=== PATIENT | female | born 1930 | race Caucasian/White ===

== ENCOUNTER 2018-12-03 09:15 | Inpatient (IN) | payer MEDICARE ==
[~2018-12-03] VITALS: Ht 157.5 cm; Wt 48.1 kg
[2018-12-03 10:03] LABS: BASOPHILS ABSOLUTE AUTO 0.04 K/mm3 (0.00-0.23); BASOPHILS PERCENT AUTO 0 % (0-2); EOSINOPHILS ABSOLUTE AUTO 0.04 K/mm3 (0.00-0.68); EOSINOPHILS PERCENT AUTO 0 % (0-6); Hematocrit 37.2 % (33.0-51.0); Hemoglobin 11.8 g/dL (11.5-16.0); IMMATURE GRAN PERCENT AUTO 1 % (0-1); LYMPHOCYTES ABSOLUTE AUTO 0.93 K/mm3 (0.84-5.20); LYMPHOCYTES PERCENT AUTO 8 % (21-46); MONOCYTES ABSOLUTE AUTO 1.12 K/mm3 (0.16-1.47); MONOCYTES PERCENT AUTO 9 % (4-13); Mean Corpuscular HGB Conc 31.7 g/dL (31.5-36.5); Mean Corpuscular Volume 91 fL (80-100); Mean Platelet Volume 10.4 fL (9.1-12.4); NEUTROPHILS ABSOLUTE AUTO 10.21 K/mm3 (1.96-9.15); NEUTROPHILS PERCENT AUTO 82 % (41-73); Platelet Count 281 K/mm3 (150-400); RDW Coefficient Variation 13.8 % (11.7-14.2); RDW Standard Deviation 47.1 fL (35.1-46.3); Red Blood Cell Count 4.07 M/mm3 (3.80-5.20); White Blood Cell Count 12.44 K/mm3 (4.00-11.30)
[2018-12-03 10:21] LABS: Alanine Aminotransfer (ALT/SGP 15 U/L (12-78); Albumin, Blood 2.8 g/dL (3.4-5.0); Albumin/Globulin Ratio 0.6 (0.8-1.8); Alk Phos 84 U/L (50-136); Anion Gap 8 mmol/L (6-16); Aspartate Aminotrans (AST/SGOT 23 U/L (12-37); Bilirubin, Total 0.6 mg/dL (0.1-1.0); Blood Urea Nitrogen 28 mg/dL (8-24); Bun/Creatinine Ratio 31.2 (12.0-20.0); CO2, Blood 27 mmol/L (21-32); Calcium, Blood 8.5 mg/dL (8.5-10.1); Chloride, Blood 105 mmol/L (98-108); Globulin, Blood 4.9 g/dL (2.2-4.0); Glomerular Filtration Rate >60 (60-); Glucose, Blood 151 mg/dL (70-99); Potassium, Blood 3.1 mmol/L (3.5-5.5); Sodium, Blood 140 mmol/L (136-145); Total Protein, Blood 7.7 g/dL (6.4-8.2); Troponin I <0.015 ng/mL (0.000-0.040)
[2018-12-03 10:29] LABS: Prothrombin Time Results 40.8 Sec (9.7-11.5)
[2018-12-03 10:34] LABS: International Normalized Ratio 4.4
[2018-12-03] MEDS ORDERED: HYDRA50 PO (15:31)
[2018-12-03] MEDS ORDERED: WARF2.5 PO ×2 (15:32→19:25)
[2018-12-03] MEDS ORDERED: Isosorbide Mono30 MG PO (15:50)
[2018-12-03] MEDS ORDERED: Zantac150 MG PO (15:50)
[2018-12-03] MEDS ORDERED: METO25 PO (19:18)
--- NOTE | 2018-12-03 19:33 | NUR ---
RECEIVED TO PCU 13 AT 1845 FROM THE ER. SHE IS PLEASANT AND COOPERATIVE. SHE DENIES ANY SKIN RASHES OR SORES. MADE COMFORTABLE. WOOL SHEARER APPLYING TELE MONITOR AND GETTING A SET OF VS. PATIENT DENIES ANY CP. ORIENTED TO ROOM. CALL LIGHT PUT INTO REACH.
--- NOTE | 2018-12-03 21:55 | NUR ---
AFIB W/ RVR UPDATE MONITOR SHOWS AFIB, HR 130-160. CALL TO MD DALTON W/ ORDERS FOR PRN METOPROLOL, SEE EMAR.
--- NOTE | 2018-12-04 00:06 | NUR ---
HR UPDATE PO METOPROLOL UNSUCCESSFUL IN REDUCING PT HR. CALL TO MD ROSE W/ NEW ORDERS FOR IV METOPROLOL, SEE EMAR.
--- NOTE | 2018-12-04 03:08 | NUR ---
CALL TO MD ROSE FOR PT HEART RATE CONTINUING TO TOUCH 150, 160'S AFTER IV METOPROLOL PUSH PER EMAR. NEW ORDERS GIVEN FOR CARDIZEM BOLUS AND CARDIZEM GTT, SEE EMAR.
[2018-12-04 05:02] LABS: BASOPHILS ABSOLUTE AUTO 0.03 K/mm3 (0.00-0.23); BASOPHILS PERCENT AUTO 0 % (0-2); EOSINOPHILS ABSOLUTE AUTO 0.04 K/mm3 (0.00-0.68); EOSINOPHILS PERCENT AUTO 0 % (0-6); Hematocrit 33.3 % (33.0-51.0); Hemoglobin 10.7 g/dL (11.5-16.0); IMMATURE GRAN ABSOLUTE AUTO 0.07 K/mm3 (0.00-0.10); IMMATURE GRAN PERCENT AUTO 1 % (0-1); LYMPHOCYTES ABSOLUTE AUTO 0.94 K/mm3 (0.84-5.20); LYMPHOCYTES PERCENT AUTO 9 % (21-46); MONOCYTES ABSOLUTE AUTO 1.07 K/mm3 (0.16-1.47); MONOCYTES PERCENT AUTO 10 % (4-13); Mean Corpuscular HGB 29.1 pg (26.0-34.0); Mean Corpuscular HGB Conc 32.1 g/dL (31.5-36.5); Mean Corpuscular Volume 91 fL (80-100); Mean Platelet Volume 10.4 fL (9.1-12.4); NEUTROPHILS ABSOLUTE AUTO 8.26 K/mm3 (1.96-9.15); NEUTROPHILS PERCENT AUTO 79 % (41-73); Platelet Count 277 K/mm3 (150-400); RDW Standard Deviation 46.8 fL (35.1-46.3); Red Blood Cell Count 3.68 M/mm3 (3.80-5.20); White Blood Cell Count 10.41 K/mm3 (4.00-11.30)
[2018-12-04 05:16] LABS: International Normalized Ratio 3.35; Prothrombin Time Results 31.8 Sec (9.7-11.5)
--- NOTE | 2018-12-04 05:20 | NUR ---
SHIFT SUMMARY PT A&O X4, CALM AND COOPERATIVE. MONITOR SHOWING AFIB W/ RVR THIS SHIFT W/ OUT SUCCESSFUL REDUCTION IN HR AFTER PO METOPROLOL AND IV METOPROLOL PER EMAR. PT NEXT GIVEN CARDIZEM BOLUS FOLLOWED BY CARDIZEM GTT W/ ORDERS FOR TITRATION. CARDIZEM GTT INFUSING @ 5 ML/HR W/ HR REDUCED TO 90-130. SPO2 > 92% ON RA. VSS. PT IN BED W/ CALL LIGHT IN REACH. SBA TO BATHROOM. WILL CONTINUE TO MONITOR AND PROVIDE CARE UNTIL REPORT OFF TO DAY SHIFT RN.
[2018-12-04 05:25] LABS: Anion Gap 9 mmol/L (6-16); Blood Urea Nitrogen 24 mg/dL (8-24); Bun/Creatinine Ratio 32.8 (12.0-20.0); CO2, Blood 22 mmol/L (21-32); Calcium, Blood 8.1 mg/dL (8.5-10.1); Chloride, Blood 109 mmol/L (98-108); Creatinine, Blood 0.73 mg/dL (0.40-1.00); Glomerular Filtration Rate >60 (60-); Glucose, Blood 112 mg/dL (70-99); Potassium, Blood 3.7 mmol/L (3.5-5.5); Sodium, Blood 140 mmol/L (136-145)
--- NOTE | 2018-12-04 07:46 | NUR ---
AM ASSESSMENT: Pt resting in bed. Up to bathroom with one assist and then to chair. HR still afib RVR at a rate of 100-130 at this time. Increased gtt rate to 10mg/ml. LS clear but slightly dim in bases. BT positive. Pulses palp. Pt denies pain, CP or SOB at this time. States that she thinks she is feeling much better. Pt oriented to self and state but confused to date, year, time and hosptial. Pt did just move from [place]. Pt uses call light appropriatly. Will continue to monitor.
--- NOTE | 2018-12-04 15:30 | NUR ---
UPDATE: Pt sitting up in room. Denies needs at this time. VSS. IV cardizem running at 10mg/hr. PO metoprolol given per orders. Will discontinue IV cardizem in about 1/2 hour. Pt denies other needs. Call light in reach.
--- NOTE | 2018-12-04 17:53 | NUR ---
SHift summary: Pt sitting up in chair. LS clear. BT positive. HR still afib rate of 80-115 range. IV cardizem was turned off at approximatly 1700. Pt up with SBA multiple times in room with RN. BP has been stable throughout the shift. Pt states that she feels so much better and is hoping to be discharged tomorrow. SS consult has been placed for discharge planning. Pt sitting up in chair at this time. Pt. shawna Goodson in room visiting, other visitors also in the room. At one point door was closed. Staff went and opened the door. Pt. shawna Goodson asked if it could be closed again and informed her that it needed to stay open. Will report to night RN.
--- NOTE | 2018-12-04 22:10 | NUR ---
2210: PT'S DAUGHTER MARJORIE ARRIVES FOR VISIT AND IS AGREEABLE TO ROOM DOOR NEEDING TO REMAIN OPEN, AND THAT DISRUPTIONS WILL NOT BE TOLERATED. PT IS AGREEABLE TO VISIT.
--- NOTE | 2018-12-05 02:31 | NUR ---
0231: PT'S DAUGHTER MARJORIE LEAVES FACILITY. SHE ASSISTED PT CHANGING FONT TO XL ON PT'S CELL PHONE. PT VERBALIZED AGREEMENT TO LET DAUGHTER LOOK THROUGH HER PURSE FOR HER "FOOD STAMP CARD."
--- NOTE | 2018-12-05 07:52 | NUR ---
AM ASSESSMENT; Pt resting in room. Oriented to self. Knows that she is in [place] but does not know what town or facility. Oriented to date, but not year. Very cooperative. LS clear. HR irregular and tachy. TEle shows afib with rate in the 110-130's. BT positive. Pulses palp. Pt denies pain, CP, or SOB. States that she is feeling really good and wants to go home. Pt was told that she will likely discharge today, but for some reason pt thinks that she will not be discharged until Monday. Will continue to re-orient pt to room and location. Stable at this time. Up to chair with one assist for breakfast. Call light in reach.
--- NOTE | 2018-12-05 08:37 | NUR ---
Pt gave me permission to care for her on 12/05/2018
[2018-12-05] MEDS ORDERED: METO25 PO (11:23)
--- NOTE | 2018-12-05 14:10 | NUR ---
DISCHARGE: Pt and granddaughter were given verbal and written discharge instructions. Verbalized understanding, denies questions. IV was discontinued by Student nurse Jael, IV was intact. RX were sent to [facility], Follow up appointment was scheduled. Grand daughter and pt. denied questions. Stable at time of discharge. Left via w/c.
== END 2018-12-05 14:05 | disposition home or self-care (01) | DRG 310 ==
LOC: ER 09:15 → ERHOLD 11:43 → PCU 18:58
PROVIDERS: Emergency Medicine; ADMIT Hospitalist
DX: I48.91 Unspecified atrial fibrillation (principal); K21.9 Gastro-esophageal reflux disease without esophagitis; D64.9 Anemia, unspecified; I10 Essential (primary) hypertension; E87.6 Hypokalemia; R79.1 Abnormal coagulation profile; Z79.01 Long term (current) use of anticoagulants; J44.9 Chronic obstructive pulmonary disease, unspecified
CPT/HCPCS: 36415; 71045; 80048; 80053; 83605; 84145; 84484; 85025; 85610; 93005; 93010; 96365; 96367; 96375; 99285-25; J0456; J0696; J7030; J7050

== ENCOUNTER 2019-01-08 15:33 | Inpatient (IN) | payer MEDICARE, OTHER ==
[~2019-01-08] VITALS: Ht 157.5 cm; Wt 44.1 kg
[~2019-01-08 15:33] MED LIST: HYDRA50 PO; Isosorbide Mono30 MG PO; METO25 PO; WARF2.5 PO; Zantac150 MG PO
[2019-01-08 16:33] LABS: BASOPHILS ABSOLUTE AUTO 0.03 K/mm3 (0.00-0.23); BASOPHILS PERCENT AUTO 1 % (0-2); EOSINOPHILS ABSOLUTE AUTO 0.07 K/mm3 (0.00-0.68); EOSINOPHILS PERCENT AUTO 1 % (0-6); Hematocrit 37.1 % (33.0-51.0); Hemoglobin 11.3 g/dL (11.5-16.0); IMMATURE GRAN ABSOLUTE AUTO 0.02 K/mm3 (0.00-0.10); IMMATURE GRAN PERCENT AUTO 0 % (0-1); LYMPHOCYTES ABSOLUTE AUTO 0.88 K/mm3 (0.84-5.20); LYMPHOCYTES PERCENT AUTO 14 % (21-46); MONOCYTES PERCENT AUTO 11 % (4-13); Mean Corpuscular HGB 26.6 pg (26.0-34.0); Mean Corpuscular HGB Conc 30.5 g/dL (31.5-36.5); Mean Corpuscular Volume 87 fL (80-100); NEUTROPHILS ABSOLUTE AUTO 4.51 K/mm3 (1.96-9.15); NEUTROPHILS PERCENT AUTO 73 % (41-73); Platelet Count 230 K/mm3 (150-400); RDW Coefficient Variation 15.9 % (11.7-14.2); RDW Standard Deviation 50.4 fL (35.1-46.3); Red Blood Cell Count 4.25 M/mm3 (3.80-5.20); White Blood Cell Count 6.21 K/mm3 (4.00-11.30)
[2019-01-08 17:21] LABS: Alanine Aminotransfer (ALT/SGP 42 U/L (12-78); Albumin, Blood 2.7 g/dL (3.4-5.0); Albumin/Globulin Ratio 0.6 (0.8-1.8); Alk Phos 107 U/L (50-136); Anion Gap 6 mmol/L (6-16); Aspartate Aminotrans (AST/SGOT 43 U/L (12-37); Bilirubin, Total 0.9 mg/dL (0.1-1.0); Blood Urea Nitrogen 39 mg/dL (8-24); CO2, Blood 25 mmol/L (21-32); Calcium, Blood 8.4 mg/dL (8.5-10.1); Chloride, Blood 110 mmol/L (98-108); Globulin, Blood 4.2 g/dL (2.2-4.0); Glomerular Filtration Rate 56 (60-); Glucose, Blood 99 mg/dL (70-99); Potassium, Blood 3.4 mmol/L (3.5-5.5); Sodium, Blood 141 mmol/L (136-145); Total Protein, Blood 6.9 g/dL (6.4-8.2); Troponin I <0.015 ng/mL (0.000-0.040)
[2019-01-08] MEDS ORDERED: CENTRUM SILVER1 EAC3 PO (19:06)
[2019-01-08] MEDS ORDERED: VITAMIN D3400 UNIT PO (19:06)
[2019-01-09 04:39] LABS: Anion Gap 7 mmol/L (6-16); Blood Urea Nitrogen 36 mg/dL (8-24); Bun/Creatinine Ratio 41.1 (12.0-20.0); CO2, Blood 24 mmol/L (21-32); Calcium, Blood 7.9 mg/dL (8.5-10.1); Chloride, Blood 110 mmol/L (98-108); Creatinine, Blood 0.88 mg/dL (0.40-1.00); Glomerular Filtration Rate >60 (60-); Glucose, Blood 106 mg/dL (70-99); Potassium, Blood 3.9 mmol/L (3.5-5.5); Sodium, Blood 141 mmol/L (136-145)
[2019-01-09 04:45] LABS: Prothrombin Time Results 38.3 Sec (9.7-11.5)
--- NOTE | 2019-01-09 04:52 | NUR ---
PCU NOC SHIFT SUMMARY PATIENT ALERT AND ORIENTED X4. SBA TO BATHROOM - AMBULATES WELL. PATIENT REMAINS ON ROOM AIR - SOB W/ EXCERTION NOTED AND LUNG SOUNDS COARSE T/O. PATIENT REMAINS IN AFIB IN THE 115'S T/O SHIFT. PATIENT DENIES ANY PAIN OR NEEDS AT THIS TIME. NO ACUTE CHANGES T/O SHIFT AND VSS BEYOND AFIB W/ RVR. WILL CONTINUE TO MONITOR AND GIVE REPORT TO DAYSHIFT RN.
[2019-01-09 05:39] LABS: International Normalized Ratio 4.11
--- NOTE | 2019-01-09 07:39 | NUR ---
NURSING PCU DAYSHIFT: Asssumed care of pt at approx 0700. A/O, very pleasant, cooperative w/care, mildly [place]. Denies any pain/discomfort at rest. Skin is fragile w/no breakdown noted. Ambulates w/one staff assist. Tele in place, afib w/HR 105-115, no c/o CP/pressure, BP stable, 2+ BLE edema. L/S fairly cta t/o w/fine cracles in RLL, denies dyspnea, O2 sat stable on RA, no noted cough. Abd SNT, BT+, voiding w/o difficulty per pt. PIV x1, s/l. No s/s of acute distress at this time. Pt denies any current needs or questions regarding plan of care. Call light in reach, bed alarm set for safety purposes. Awaiting rounding from PMD, cont to monitor for any changes.
--- NOTE | 2019-01-09 18:09 | NUR ---
NURSING PCU DAYSHIFT SUMMARY: No significant changes noted t/o the shift. VS remained stable, respiratory and cardiac status unchanged. Pt continues to diurese well w/meds as ordered. Family at bedside, update provided and plan of care discussed. Pt has been independent in room w/o difficulty. Ambulated maki w/no c/o dyspnea which is improvement from previous day per pt. HR remains 110-120's, increases to 120-130's w/exertion. Pt denies any questions/needs at this time, call light in reach, cont to monitor until rpt is given to NOC RN.
--- NOTE | 2019-01-09 22:35 | NUR ---
PCU NIGHTSHIFT ASSUMED CARE OF PT APPROX. 1900. PT A&O X4. ASSESSMENT COMPLETED, VITAL SIGNS STABLE. PT HEART RHYTHM REMAINS A. FIB AT THIS TIME AVERAGING 110'S. PT REPORTS HAVING A GOOD DAY AND FEELING BETTER THAN SHE PREVIOUSLY DID. PT SLEEPY THIS EVENING BUT WAS ABLE TO WAKE UP AND ANSWER ALLL QUESTIONS AND TAKE EVENING MEDICAITONS. BED IN LOW POSITON, CALL LIGHT IN REACH AND PT DENIES ANY NEEDS AT THIS TIME.
[2019-01-10 04:24] LABS: BASOPHILS ABSOLUTE AUTO 0.03 K/mm3 (0.00-0.23); BASOPHILS PERCENT AUTO 1 % (0-2); EOSINOPHILS ABSOLUTE AUTO 0.12 K/mm3 (0.00-0.68); EOSINOPHILS PERCENT AUTO 2 % (0-6); Hematocrit 37.6 % (33.0-51.0); Hemoglobin 11.6 g/dL (11.5-16.0); IMMATURE GRAN ABSOLUTE AUTO 0.02 K/mm3 (0.00-0.10); IMMATURE GRAN PERCENT AUTO 0 % (0-1); LYMPHOCYTES ABSOLUTE AUTO 1.01 K/mm3 (0.84-5.20); LYMPHOCYTES PERCENT AUTO 20 % (21-46); MONOCYTES ABSOLUTE AUTO 0.63 K/mm3 (0.16-1.47); MONOCYTES PERCENT AUTO 12 % (4-13); Mean Corpuscular HGB 26.2 pg (26.0-34.0); Mean Corpuscular HGB Conc 30.9 g/dL (31.5-36.5); Mean Corpuscular Volume 85 fL (80-100); Mean Platelet Volume 11.4 fL (9.1-12.4); NEUTROPHILS PERCENT AUTO 65 % (41-73); Platelet Count 213 K/mm3 (150-400); RDW Coefficient Variation 15.7 % (11.7-14.2); Red Blood Cell Count 4.43 M/mm3 (3.80-5.20); White Blood Cell Count 5.11 K/mm3 (4.00-11.30)
[2019-01-10 04:40] LABS: International Normalized Ratio 3.33; Prothrombin Time Results 31.6 Sec (9.7-11.5)
[2019-01-10 04:47] LABS: Alanine Aminotransfer (ALT/SGP 34 U/L (12-78); Albumin, Blood 2.8 g/dL (3.4-5.0); Albumin/Globulin Ratio 0.7 (0.8-1.8); Alk Phos 91 U/L (50-136); Anion Gap 7 mmol/L (6-16); Aspartate Aminotrans (AST/SGOT 24 U/L (12-37); Bilirubin, Total 1.1 mg/dL (0.1-1.0); Blood Urea Nitrogen 31 mg/dL (8-24); Bun/Creatinine Ratio 35.7 (12.0-20.0); CO2, Blood 28 mmol/L (21-32); Calcium, Blood 8.3 mg/dL (8.5-10.1); Chloride, Blood 106 mmol/L (98-108); Creatinine, Blood 0.87 mg/dL (0.40-1.00); Glomerular Filtration Rate >60 (60-); Glucose, Blood 85 mg/dL (70-99); Sodium, Blood 141 mmol/L (136-145); Total Protein, Blood 6.8 g/dL (6.4-8.2)
--- NOTE | 2019-01-10 05:03 | NUR ---
SHIFT SUMMARY PT PLEASANT, COOPERATIVE AND USES CALL LIGHT APPROPRIATELY. PT REMAINS A&OX4. ASSESSMENT FINDINGS REMAIN UNCHANGED. PT ABLE TO SLEEP FOR MOST OF SHIFT. ALTHOUGH WAS ABLE TO AMBUALTE TO BATHROOM NEEDED AND TOLERATED WELL. HEART RATE REMAINS A. FIB WITH HEART RATE AVERAGING 100'S-110'S. BED IN LOW POSITION, CALL LIGHT IN REACH AND PT DENIES ANY NEEDS AT THIS TIME. WILL CONTINUE TO MONITOR UNTIL HANDOFF TO DAYSHIFT RN.
--- NOTE | 2019-01-10 07:45 | NUR ---
NURSING PCU DAYSHIFT: Assumed care of pt at approx 0700. A/O, [place], pleasant, cooperative w/care. Denies any pain/discomfort at rest. Skin is fragile though intact w/no breakdown noted. Ambulates independently and w/o difficulty. Tele in place, afib w/PVC's, no c/o CP/pressure, SBP 130 prior to a.m. meds, trace-1+ BLE edema. L/S dim t/o, O2 sat stable on RA, denies dyspnea, no noted cough, respirations shallow. Abd SNT, BT+, voiding w/o difficulty. PIV x1, s/l. No s/s of acute distress at this time. Pt denies any current needs or questions regarding plan of care. Call light in reach and pt is able to use w/o difficulty. Awaiting rounding from PMD, cont to monitor for any changes.
--- NOTE | 2019-01-10 17:26 | NUR ---
NURSING PCU DAYSHIFT SUMMARY: No significant changes noted t/o the shift. VS have remained stable, cardiac and respiratory status unchanged. HR has improved and is averaging 80's this evening. Family at bedside intermittently t/o the day, update provided. PMD notified of family members request to discuss ECHO results, cell number provided to PMD by CN. No s/s of acute distress at this time. Call light remains in reach and pt is able to use w/o difficulty. Cont to monitor until rpt is given to NOC RN.
[2019-01-11 04:23] LABS: International Normalized Ratio 2.46
[2019-01-11 04:28] LABS: Anion Gap 7 mmol/L (6-16); Blood Urea Nitrogen 24 mg/dL (8-24); Bun/Creatinine Ratio 28.2 (12.0-20.0); CO2, Blood 31 mmol/L (21-32); Calcium, Blood 7.9 mg/dL (8.5-10.1); Chloride, Blood 102 mmol/L (98-108); Creatinine, Blood 0.85 mg/dL (0.40-1.00); Glomerular Filtration Rate >60 (60-); Glucose, Blood 82 mg/dL (70-99); Magnesium, Blood 2.2 mg/dL (1.6-2.4); Potassium, Blood 3.3 mmol/L (3.5-5.5); Sodium, Blood 140 mmol/L (136-145)
--- NOTE | 2019-01-11 04:48 | NUR ---
PCU NOC SHIFT SUMMARY PATIENT ALERT AND ORIENTED T/O SHIFT X4. NO ACUTE EVENTS NOTED. PATIENT SBA TO BATHROOM, SLIGHTLY UNEASY OF FEET. RESP E/U ON ROOM AIR, PATIENT TOLERATES AMBULATION WELL. PATIENT DENIES ANY PAIN OR SOB T/O SHIFT. PATIENT INCONTINENT X2 OF URINE THIS SHIFT. SHOWERED THIS AM WITH ASSIST. PATIENT REMAINS IN AFIB 90-110'S T/O SHIFT. VSS. WILL CONTINUE TO MONITOR AND GIVE REPORT TO FLAKO RN.
--- NOTE | 2019-01-11 12:27 | NUR ---
1230 SCHEDULED Apresoline was held for systolic blood pressure less than 110 mmHg at this time. Thept is sitting up on the side of the bed, eating lunch with her family surrounding her.
--- NOTE | 2019-01-11 14:29 | NUR ---
Gabriela has been alert, oriented, cooperative and without any complaints this morning. Denies any pain or difficulty breathing. Both she and her daughter state that the swelling in her legs has decreased significantly. At this time she does not have any pretibial edema, nor pedal edema, only some around her ankles.
--- NOTE | 2019-01-11 17:32 | NUR ---
Delightful, pleasant and cooperative soft-spoken lady who has been cooperative with care and also receptive to teaching about CHF, medications, and checking blood pressure and heart rate at home after discharge. She lives with her granddaughter. Gabriela has been up in hallway with physical therapy, and was encouraged to get up out of bed as much as tolerated, especially to take her meals in a chair. Telephone report given to Russ Kelly. Transfer of pt to room 339 this evening.
--- NOTE | 2019-01-11 18:12 | NUR ---
SUMMARY PT ARRIVED FROM PCU, ABLE TO STAND AND TRANSFER FROM THE WHEELCHAIR TO THE BED, PT IS ACCOMPANIED BY HER DAUGHTER, PT ORIENTED TO ROOM AND CALL SYSTEM, PLEASANT AND COOPERATIVE WITH CARE, WILL CONT TO MONITOR
--- NOTE | 2019-01-12 04:00 | NUR ---
SHIFT SUMMARY PT HAD NO ISSUES OR EVENTS NOTED. PT LOPRESSOR WAS HELD PER ORDERS DUE TO LOW BP. PT HAS SLEPT WELL T/O SHIFT. PT HAD NO COMPLAINTS. PT FAMILY STAYED THE NIGHT WITH PT. CALL LIGHT IN REACH. PT BED ALARM IS ON DUE TO PT BEING UNSTEADY WHEN SHE FIRST WAKES UP.
[2019-01-12 05:48] LABS: International Normalized Ratio 1.87; Prothrombin Time Results 18.7 Sec (9.7-11.5)
--- NOTE | 2019-01-12 12:49 | NUR ---
TURNED OVER CARE TO KERMIT Sierra RN.
--- NOTE | 2019-01-12 13:39 | NUR ---
ASSUMED CARE OF PT. I AGREE WITH PREVIOUS INSPECTOR SHELLS
--- NOTE | 2019-01-13 05:13 | NUR ---
SHIFT SUMMARY PT HAS SLEPT T/O SHIFT. PT DAUGHTER STAYED NIGHT WITH PT. PT HAD NO ISSUES NOTED. PT HAD NO SOB OR HEART RATE ISSUES. PT LOPRESSOR WAS HELD DUE TO BP ORDERED BY DR JULIEN. PT CURRENTLY SLEEPING AND BREATHING EASY.
[2019-01-13 05:26] LABS: BASOPHILS ABSOLUTE AUTO 0.05 K/mm3 (0.00-0.23); BASOPHILS PERCENT AUTO 1 % (0-2); EOSINOPHILS ABSOLUTE AUTO 0.16 K/mm3 (0.00-0.68); EOSINOPHILS PERCENT AUTO 3 % (0-6); Hematocrit 39.6 % (33.0-51.0); Hemoglobin 12.3 g/dL (11.5-16.0); IMMATURE GRAN ABSOLUTE AUTO 0.02 K/mm3 (0.00-0.10); IMMATURE GRAN PERCENT AUTO 0 % (0-1); LYMPHOCYTES ABSOLUTE AUTO 1.21 K/mm3 (0.84-5.20); LYMPHOCYTES PERCENT AUTO 19 % (21-46); MONOCYTES PERCENT AUTO 12 % (4-13); Mean Corpuscular HGB 25.8 pg (26.0-34.0); Mean Corpuscular HGB Conc 31.1 g/dL (31.5-36.5); Mean Corpuscular Volume 83 fL (80-100); Mean Platelet Volume 10.8 fL (9.1-12.4); NEUTROPHILS ABSOLUTE AUTO 4.28 K/mm3 (1.96-9.15); NEUTROPHILS PERCENT AUTO 66 % (41-73); Platelet Count 237 K/mm3 (150-400); RDW Coefficient Variation 15.7 % (11.7-14.2); RDW Standard Deviation 47.7 fL (35.1-46.3); Red Blood Cell Count 4.76 M/mm3 (3.80-5.20); White Blood Cell Count 6.52 K/mm3 (4.00-11.30)
[2019-01-13 05:43] LABS: International Normalized Ratio 1.58; Prothrombin Time Results 16.1 Sec (9.7-11.5)
[2019-01-13 05:55] LABS: Alanine Aminotransfer (ALT/SGP 21 U/L (12-78); Albumin, Blood 2.6 g/dL (3.4-5.0); Albumin/Globulin Ratio 0.6 (0.8-1.8); Alk Phos 75 U/L (50-136); Anion Gap 4 mmol/L (6-16); Aspartate Aminotrans (AST/SGOT 24 U/L (12-37); Bilirubin, Total 0.9 mg/dL (0.1-1.0); Blood Urea Nitrogen 26 mg/dL (8-24); Bun/Creatinine Ratio 33.2 (12.0-20.0); CO2, Blood 32 mmol/L (21-32); Calcium, Blood 8.2 mg/dL (8.5-10.1); Chloride, Blood 104 mmol/L (98-108); Creatinine, Blood 0.78 mg/dL (0.40-1.00); Globulin, Blood 4.1 g/dL (2.2-4.0); Glomerular Filtration Rate >60 (60-); Glucose, Blood 84 mg/dL (70-99); Potassium, Blood 3.7 mmol/L (3.5-5.5); Sodium, Blood 140 mmol/L (136-145); Total Protein, Blood 6.7 g/dL (6.4-8.2)
--- NOTE | 2019-01-13 17:45 | NUR ---
SHIFT SUMMARY NO ACUTE CHANGES. PATIETN DENIES PAIN, NAUSEA AND SHORTNESS OF BREATH. PATIENT WILL LIKELY DISCHARGE TOMORROW. GRANDDAUGHTER IS CAREGIVER AND NEEDS TO BE PRESENT FOR DISCHARGE EDUCATION. PATIENT UP TO THE BATHROOM SBA. PATIETN UP IN CHAIR FOR MEALS. CALL LIGHT IN REACH, WILL CONTINUE TO MONITOR.
--- NOTE | 2019-01-14 03:54 | NUR ---
SHIFT SUMMARY PT HAD NO COMPLAINTS NOTED. PT HAS SLEPT T/O SHIFT. DAUGHTER STAYED THE NIGHT WITH PT. PT IS EAGER TO GO HOME. PT IS CURRENTLY SLEEPING AND BREATHING EASY. CALL LIGHT IN REACH AND BED ALARM ON.
[2019-01-14 04:54] LABS: International Normalized Ratio 1.52; Prothrombin Time Results 15.5 Sec (9.7-11.5)
[2019-01-14] MEDS ORDERED: WARF5 PO (12:05)
[2019-01-14] MEDS ORDERED: FURO20 PO (12:06)
[2019-01-14] MEDS ORDERED: DILT60ER PO (12:06)
[2019-01-14] MEDS ORDERED: Lisinopril2.5 MG PO (12:07)
--- NOTE | 2019-01-14 13:46 | NUR ---
PATIENT DISCHARGED AT 1240. PATIENT'S [facility] DROVE THE PATIENT HOME.
== END 2019-01-14 12:46 | disposition home health service (06) | DRG 291 ==
LOC: ER 15:33 → PCU 19:51 → MEDS 01-11 18:07
PROVIDERS: Family Medicine; Internal Medicine; Nurse Practitioner Acute Care; Physician Assistant; ADMIT Internal Medicine
DX: I11.0 Hypertensive heart disease with heart failure (principal); I50.21 Acute systolic (congestive) heart failure; J98.11 Atelectasis; R79.1 Abnormal coagulation profile; E16.2 Hypoglycemia, unspecified; K21.9 Gastro-esophageal reflux disease without esophagitis; I35.0 Nonrheumatic aortic (valve) stenosis; I35.1 Nonrheumatic aortic (valve) insufficiency; I27.20 Pulmonary hypertension, unspecified; I34.0 Nonrheumatic mitral (valve) insufficiency; I36.1 Nonrheumatic tricuspid (valve) insufficiency; Z79.01 Long term (current) use of anticoagulants; E87.6 Hypokalemia; I48.2 Chronic atrial fibrillation; D64.9 Anemia, unspecified
CPT/HCPCS: 36415; 71046; 80048; 80053; 83735; 83880; 84145; 84484; 85025; 85610; 93005; 93010; 93306; 96374; 96375; 97116; 97161; 97530; 99285-25; J1940

== ENCOUNTER 2019-03-21 14:38 | Observation (INO) | payer MEDICARE, SELFPAY ==
[~2019-03-21] VITALS: Ht 157.5 cm; Wt 38.5 kg
[~2019-03-21 14:38] MED LIST changes: +CENTRUM SILVER1 EAC3 PO; +DILT60ER PO; +FURO20 PO; +Lisinopril2.5 MG PO; +VITAMIN D3400 UNIT PO; +WARF5 PO
[2019-03-21 17:17] LABS: BASOPHILS ABSOLUTE AUTO 0.08 K/mm3 (0.00-0.23); BASOPHILS PERCENT AUTO 1 % (0-2); EOSINOPHILS PERCENT AUTO 3 % (0-6); Hemoglobin 13.2 g/dL (11.5-16.0); IMMATURE GRAN ABSOLUTE AUTO 0.03 K/mm3 (0.00-0.10); IMMATURE GRAN PERCENT AUTO 0 % (0-1); LYMPHOCYTES PERCENT AUTO 16 % (21-46); MONOCYTES ABSOLUTE AUTO 0.71 K/mm3 (0.16-1.47); MONOCYTES PERCENT AUTO 10 % (4-13); Mean Corpuscular HGB 25.2 pg (26.0-34.0); Mean Corpuscular HGB Conc 30.7 g/dL (31.5-36.5); Mean Corpuscular Volume 82 fL (80-100); Mean Platelet Volume 9.7 fL (9.1-12.4); NEUTROPHILS ABSOLUTE AUTO 5.26 K/mm3 (1.96-9.15); NEUTROPHILS PERCENT AUTO 70 % (41-73); Platelet Count 237 K/mm3 (150-400); RDW Coefficient Variation 21.8 % (11.7-14.2); RDW Standard Deviation 63.6 fL (35.1-46.3); Red Blood Cell Count 5.24 M/mm3 (3.80-5.20); White Blood Cell Count 7.48 K/mm3 (4.00-11.30)
[2019-03-21 17:44] LABS: Alanine Aminotransfer (ALT/SGP 17 U/L (12-78); Albumin/Globulin Ratio 0.6 (0.8-1.8); Alk Phos 91 U/L (50-136); Anion Gap 5 mmol/L (6-16); Aspartate Aminotrans (AST/SGOT 28 U/L (12-37); Bilirubin, Total 0.6 mg/dL (0.1-1.0); Blood Urea Nitrogen 20 mg/dL (8-24); Bun/Creatinine Ratio 28.9 (12.0-20.0); CO2, Blood 32 mmol/L (21-32); Calcium, Blood 9.2 mg/dL (8.5-10.1); Chloride, Blood 99 mmol/L (98-108); Creatinine, Blood 0.69 mg/dL (0.40-1.00); Globulin, Blood 5.2 g/dL (2.2-4.0); Glomerular Filtration Rate >60 (60-); Glucose, Blood 110 mg/dL (70-99); Potassium, Blood 3.6 mmol/L (3.5-5.5); Sodium, Blood 136 mmol/L (136-145); Total Protein, Blood 8.2 g/dL (6.4-8.2)
[2019-03-21 18:08] LABS: Prothrombin Time Results >90.0 Sec (9.7-11.5)
[2019-03-21 18:09] LABS: International Normalized Ratio No Calc
[2019-03-21 20:05] LABS: Hematocrit 42.6 % (33.0-51.0); Hemoglobin 13.3 g/dL (11.5-16.0)
[2019-03-21 21:58] LABS: International Normalized Ratio 2.12
--- NOTE | 2019-03-21 22:20 | NUR ---
PT TO ICU 11 FROM ED. PT ALERT AND ORIENTED ABLE TO TRANSFER FROM [facility] WITH SBA. PT APPEARS UNDERWEIGHT AND STATES THAT SHE HAD LOST ABOUT "6 LBS IN THE LAST FEW MONTHS". PT DENIES PAIN, NAUSEA, DIZZINESS. PT REPORTS "DARK STOOL" OVER THE LAST 2 DAYS. UNIT READY SLIP SENT FOR 2 UNITS FFB WITH STAT INR TO FOLLOW. VSS. SEE FULL ADMISSION ASSESSMENT.
--- NOTE | 2019-03-21 22:23 | NUR ---
2 UNITS FFP TRANSFUSED, PT 21.0, INR 2.12. RESULTS REPORTED TO MELISSA GUILLEN NP.
[2019-03-22 02:15] LABS: Hematocrit 37.7 % (33.0-51.0); Hematocrit 38.1 % (33.0-51.0); Mean Corpuscular HGB 25.5 pg (26.0-34.0); Mean Corpuscular HGB Conc 31.8 g/dL (31.5-36.5); Mean Corpuscular Volume 80 fL (80-100); Mean Platelet Volume 9.8 fL (9.1-12.4); Platelet Count 202 K/mm3 (150-400); RDW Coefficient Variation 21.1 % (11.7-14.2); RDW Standard Deviation 61.1 fL (35.1-46.3)
[2019-03-22 02:29] LABS: International Normalized Ratio 2.12
[2019-03-22 02:31] LABS: Anion Gap 6 mmol/L (6-16); Blood Urea Nitrogen 17 mg/dL (8-24); Bun/Creatinine Ratio 24.2 (12.0-20.0); CO2, Blood 34 mmol/L (21-32); Calcium, Blood 9.1 mg/dL (8.5-10.1); Chloride, Blood 101 mmol/L (98-108); Glomerular Filtration Rate >60 (60-); Glucose, Blood 144 mg/dL (70-99); Potassium, Blood 3.7 mmol/L (3.5-5.5); Sodium, Blood 141 mmol/L (136-145)
--- NOTE | 2019-03-22 06:26 | NUR ---
SHIFT SUMMARY PT REMAINS STABLE WITH PT AND INR WITHIN NORMAL RANGE FOLLOWING 2 UNITS FFP. PT ABLE TO AMBULATE INDEPENDENTLY WITH NO DIFFICULTY, NO C/O BEING DIZZY OR LIGHTHEADED. PT DID NOT HAVE A BM THIS SHIFT SO NO VISUAL EVIDENCE OF ACTIVE BLEEDING. PT CONTINUES TO DENIES PAIN/TENDERNESS WITH ABDOMINAL PALPATION. VSS. WILL REPORT TO DAYSHIFT NURSE.
--- NOTE | 2019-03-22 07:56 | NUR ---
CALL TO DR KEY: CALLED AND DISCUSSED PT EATING BREAKFAST. DR KEY IS NOT GOING TO BE SCOPING THIS PT AND STATES SHE CAN BE DISCHARGED FAR HE IS CONCERNED AND HOSPITALIST OK'S. HE DOES NOT BELIEVE THIS PT IS IN NEED OF FOLLOW UP WITH GI, BUT IS WILLING TO SEE THE PT IF HOSPITALIST BELIEVES IT IS NECESSARY. PT HAS NOT HAD ANY S/S OF BLEEDING NOTED BY NURSING STAFF, BUT PT REPORT OF BLACK STOOL. WILL CONTINUE TO MONITOR.
[2019-03-22 08:22] LABS: Hemoglobin 11.8 g/dL (11.5-16.0)
[2019-03-22] MEDS ORDERED: LANOXIN125 MCG PO (11:40)
[2019-03-22] MEDS ORDERED: OMEPRAZOLE20 MG PO (11:42)
[2019-03-22] MEDS ORDERED: POTCHL20ER PO (11:43)
[2019-03-22] MEDS ORDERED: WARF2.5 PO (11:45)
--- NOTE | 2019-03-22 13:50 | NUR ---
DISCHARGE: PT AND GRANDDAUGHTER EDUCATED ON DISCHARGE INFORMATION. KOREY Pulliam CAME FROM CASE MANAGEMENT AND DISCUSSED PT DAILY LABS AND HOME HEALTH. REMOVED IV'S AND WHEELED PT OUT THE DOOR. NO S/S OF DISTRESS
== END 2019-03-22 13:50 | disposition home health service (06) ==
LOC: ER 14:38 → ICUW 14:39 → ER 14:39 → ICUW 14:40
PROVIDERS: Physician Assistant; ADMIT Internal Medicine
DX: R79.1 Abnormal coagulation profile (principal); T45.515A Adverse effect of anticoagulants, initial encounter; K92.1 Melena; I48.2 Chronic atrial fibrillation; I11.0 Hypertensive heart disease with heart failure; I50.42 Chronic combined systolic (congestive) and diastolic (congestive) heart failure; K21.9 Gastro-esophageal reflux disease without esophagitis; I25.10 Atherosclerotic heart disease of native coronary artery without angina pectoris; I08.3 Combined rheumatic disorders of mitral, aortic and tricuspid valves; E44.0 Moderate protein-calorie malnutrition; Z68.1 Body mass index [BMI] 19.9 or less, adult; Z79.899 Other long term (current) drug therapy; Z79.01 Long term (current) use of anticoagulants; Z88.8 Allergy status to other drugs, medicaments and biological substances
CPT/HCPCS: 36415; 36430; 80048; 80053; 82272; 85014; 85018; 85025; 85027; 85610; 86850; 86900; 86901; 96365; 96366; 96375; 96376; 97116; 97161; 97166; 97530; 99285-25; C9113; G0378; J1200; J2405; J2920; J3430; P9059

== ENCOUNTER 2019-03-25 14:35 | Emergency (ER) | payer MEDICARE, SELFPAY ==
[~2019-03-25] VITALS: Ht 157.5 cm; Wt 43.1 kg
[~2019-03-25 14:35] MED LIST changes: +LANOXIN125 MCG PO; +OMEPRAZOLE20 MG PO; +POTCHL20ER PO
[2019-03-25 15:25] LABS: International Normalized Ratio 1.71; Prothrombin Time Results 17.3 Sec (9.7-11.5)
[2019-03-25] MEDS ORDERED: ULTRA-LIGHT RO1 EACH EXT (17:18)
== END 2019-03-25 17:44 | disposition home or self-care (01) ==
LOC: ER 14:35
PROVIDERS: Physician Assistant
DX: S02.2XXA Fracture of nasal bones, initial encounter for closed fracture (principal); I10 Essential (primary) hypertension; I48.91 Unspecified atrial fibrillation; Z88.8 Allergy status to other drugs, medicaments and biological substances; Z79.899 Other long term (current) drug therapy; Z79.01 Long term (current) use of anticoagulants; W18.09XA Striking against other object with subsequent fall, initial encounter
CPT/HCPCS: 36415; 70450; 70486; 73562-LT; 73610; 85610; 99284-25

== ENCOUNTER 2019-06-03 10:44 | Emergency (ER) | payer MEDICARE, SELFPAY ==
[~2019-06-03] VITALS: Ht 157.5 cm; Wt 40.8 kg
[~2019-06-03 10:44] MED LIST changes: +ULTRA-LIGHT RO1 EACH EXT
[2019-06-03 11:49] LABS: BASOPHILS ABSOLUTE AUTO 0.04 K/mm3 (0.00-0.23); BASOPHILS PERCENT AUTO 1 % (0-2); EOSINOPHILS ABSOLUTE AUTO 0.01 K/mm3 (0.00-0.68); EOSINOPHILS PERCENT AUTO 0 % (0-6); Hematocrit 45.9 % (33.0-51.0); Hemoglobin 14.2 g/dL (11.5-16.0); IMMATURE GRAN ABSOLUTE AUTO 0.02 K/mm3 (0.00-0.10); IMMATURE GRAN PERCENT AUTO 0 % (0-1); LYMPHOCYTES ABSOLUTE AUTO 0.71 K/mm3 (0.84-5.20); LYMPHOCYTES PERCENT AUTO 14 % (21-46); MONOCYTES ABSOLUTE AUTO 0.53 K/mm3 (0.16-1.47); MONOCYTES PERCENT AUTO 11 % (4-13); Mean Corpuscular HGB 26.6 pg (26.0-34.0); Mean Corpuscular HGB Conc 30.9 g/dL (31.5-36.5); Mean Corpuscular Volume 86 fL (80-100); Mean Platelet Volume 12.5 fL (9.1-12.4); NEUTROPHILS PERCENT AUTO 74 % (41-73); Platelet Count 213 K/mm3 (150-400); RDW Coefficient Variation 18.6 % (11.7-14.2); RDW Standard Deviation 56.3 fL (35.1-46.3); Red Blood Cell Count 5.33 M/mm3 (3.80-5.20); White Blood Cell Count 5.01 K/mm3 (4.00-11.30)
[2019-06-03 12:05] LABS: Albumin, Blood 3.3 g/dL (3.4-5.0); Albumin/Globulin Ratio 0.7 (0.8-1.8); Bilirubin, Total 1.6 mg/dL (0.1-1.0); Bun/Creatinine Ratio 31.9 (12.0-20.0); Calcium, Blood 9.1 mg/dL (8.5-10.1); Creatinine, Blood 1.13 mg/dL (0.40-1.00); Globulin, Blood 4.9 g/dL (2.2-4.0); Potassium, Blood 3.8 mmol/L (3.5-5.5); Total Protein, Blood 8.2 g/dL (6.4-8.2)
[2019-06-03 12:07] LABS: Prothrombin Time Results 42.3 Sec (9.7-11.5)
[2019-06-03 12:28] LABS: International Normalized Ratio 4.58
[2019-06-03 13:19] LABS: Source, Urine Clean Catch
[2019-06-03 13:30] LABS: Blood, Urine 1+ (Neg); Glucose Qualitative, Urine Neg (Neg); Ketones, Urine 1+ (Neg); Leukocyte Esterase, Urine 1+ (Neg); Nitrite, Urine Neg (Neg); Protein, Urine 3+ (Neg); Specific Gravity, Urine 1.025 (1.003-1.022); Urobilinogen, Urine 2+ (Normal)
[2019-06-03 13:38] LABS: Appearance, Urine Clear (Clear); Bilirubin, Urine 1+ (Neg); Color, Urine Orange (P-Yellow)
[2019-06-03 13:39] LABS: Bacteria Many /hpf; Red Blood Cells, Urine 0-2 /hpf (0-2); Squamous Epithelial Cells Few /hpf (Few)
[2019-06-03 13:40] LABS: Calcium Oxalate Crystals Few /hpf; Mucus Light (0-Heavy)
[2019-06-03 14:28] LABS: Digoxin (Lanoxin) 0.08 ug/mL (0.80-2.00)
== END 2019-06-03 15:53 | disposition home or self-care (01) ==
LOC: ER 10:44
PROVIDERS: Emergency Medicine; Physician Assistant
DX: K52.9 Noninfective gastroenteritis and colitis, unspecified (principal); R53.81 Other malaise; R79.1 Abnormal coagulation profile; I48.20 Chronic atrial fibrillation, unspecified; I50.22 Chronic systolic (congestive) heart failure; K21.9 Gastro-esophageal reflux disease without esophagitis; I27.20 Pulmonary hypertension, unspecified; Z88.8 Allergy status to other drugs, medicaments and biological substances; Z79.899 Other long term (current) drug therapy; Z79.01 Long term (current) use of anticoagulants
CPT/HCPCS: 36415; 80053; 80162; 81001; 83690; 85025; 85610; 87086; 93005; 93010; 99284-25

== ENCOUNTER 2019-06-09 09:59 | Inpatient (IN) | payer MEDICARE, SELFPAY ==
[~2019-06-09] VITALS: Ht 160 cm; Wt 39.8 kg
[~2019-06-09 09:59] MED LIST changes: -CENTRUM SILVER1 EAC3 PO; +MULTI VITAMIN1 EACH PO
[2019-06-09 10:39] LABS: BASOPHILS ABSOLUTE AUTO 0.04 K/mm3 (0.00-0.23); BASOPHILS PERCENT AUTO 1 % (0-2); EOSINOPHILS ABSOLUTE AUTO 0.01 K/mm3 (0.00-0.68); EOSINOPHILS PERCENT AUTO 0 % (0-6); Hematocrit 45.6 % (33.0-51.0); Hemoglobin 14.1 g/dL (11.5-16.0); IMMATURE GRAN ABSOLUTE AUTO 0.02 K/mm3 (0.00-0.10); IMMATURE GRAN PERCENT AUTO 0 % (0-1); LYMPHOCYTES ABSOLUTE AUTO 0.92 K/mm3 (0.84-5.20); LYMPHOCYTES PERCENT AUTO 16 % (21-46); MONOCYTES ABSOLUTE AUTO 0.52 K/mm3 (0.16-1.47); MONOCYTES PERCENT AUTO 9 % (4-13); Mean Corpuscular HGB 26.4 pg (26.0-34.0); Mean Corpuscular HGB Conc 30.9 g/dL (31.5-36.5); Mean Corpuscular Volume 85 fL (80-100); Mean Platelet Volume 12.2 fL (9.1-12.4); NEUTROPHILS ABSOLUTE AUTO 4.13 K/mm3 (1.96-9.15); NEUTROPHILS PERCENT AUTO 73 % (41-73); NRBC ABSOLUTE 0.02 K/mm3 (0.00-0.02); NRBC Auto 0.4 /100 WBC (0.0-0.2); Platelet Count 307 K/mm3 (150-400); RDW Coefficient Variation 18.2 % (11.7-14.2); RDW Standard Deviation 55.8 fL (35.1-46.3); Red Blood Cell Count 5.34 M/mm3 (3.80-5.20); White Blood Cell Count 5.64 K/mm3 (4.00-11.30)
[2019-06-09 10:53] LABS: Alanine Aminotransfer (ALT/SGP 31 U/L (12-78); Albumin, Blood 3.3 g/dL (3.4-5.0); Albumin/Globulin Ratio 0.7 (0.8-1.8); Alk Phos 109 U/L (50-136); Anion Gap 11 mmol/L (6-16); Aspartate Aminotrans (AST/SGOT 43 U/L (12-37); Bilirubin, Total 1.9 mg/dL (0.1-1.0); Blood Urea Nitrogen 63 mg/dL (8-24); CO2, Blood 24 mmol/L (21-32); Calcium, Blood 8.9 mg/dL (8.5-10.1); Chloride, Blood 105 mmol/L (98-108); Creatinine, Blood 1.37 mg/dL (0.40-1.00); Globulin, Blood 4.6 g/dL (2.2-4.0); Glomerular Filtration Rate 39 (60-); Glucose, Blood 132 mg/dL (70-99); Sodium, Blood 140 mmol/L (136-145); Total Protein, Blood 7.9 g/dL (6.4-8.2); Troponin I <0.015 ng/mL (0.000-0.040)
[2019-06-09 11:16] LABS: International Normalized Ratio 3.3; Prothrombin Time Results 31.4 Sec (9.7-11.5)
[2019-06-09 11:30] LABS: Digoxin (Lanoxin) 0.09 ug/mL (0.80-2.00)
--- NOTE | 2019-06-09 18:36 | NUR ---
SHIFT NOTE ORIGINAL NS FROM ER REMAINS INFUSING AT END OF SHIFT. PT APPEARS TO BE SLEEPING, NADN. PT ARRIVED FROM ER WITH AFIB c RVR, PT DENIES ANY CP OR SOB, STS THAT SHE FEELS TIRED. LS ARE DECREASED T/O WITH FINE CRACKLES NOTED. 1+ EDEMA NOTED TO BLE. SKIN IS INTACT WITH FINE SCATTER BRUISING NOTED T/O LIMBS. PT A/O ANSWERING QUESTIONS APPROPRIATELY. PT IS VERY HARD OF HEARING. PT DENIES ANY PAIN UPON ARRIVAL BUT TOWARDS THE END OF SHIFT REQUESTED TYLENOL FOR ATHRIRITIS PAIN, PT OTHERWISE RESTING WELL IN BED. FAMILY HAS RETURNED HOME FOR THE EVENING. VSS.
--- NOTE | 2019-06-09 19:15 | NUR ---
ASSUMED CARE OF PT, CARDIZEM GTT VERIFIED AT 5 MG/HR INFUSING VIA PUMP AT 5 ML/HR. PT IS ALERT AND ORIENTED, DENIES PAIN, DENIES CP/PRESSURE, DENIES SOB/DYSPNEA AND STATES THAT HER BREATHING IS FEELING MUCH IMPROVED AT THIS TIME, DENIES N/V, STATES THAT SHE IS COMFORTABLE AT THIS TIME. LUNGS HAVE FINE CRACKLES NOTED THROUGHOUT, RESP RATE 16, SATS ARE 96% ON ROOM AIR, NO COUGH IS NOTED AT THIS TIME, NO INCREASED WORK OF BREATHING IS NOTED AT REST. HEAR RATE IRREGULAR, AFIB AT THIS TIME, RATE 90S, PRESSURE MAINTAINING, CAP REFILL IS BRISK X 4 EXTREMITIES, PULSES ARE FULL, 3+ PITTING EDEMA IS NOTED TO BILAT LOWER LEGS, LEFT GREATER THAN RIGHT. ACTIVE BOWEL TONES X 4, ABD FLAT, SOFT, NO GRIMACING/GUARDING WITH LIGHT PALPATION. WILL CONT TO MONITOR.
[2019-06-10 03:21] LABS: BASOPHILS ABSOLUTE AUTO 0.05 K/mm3 (0.00-0.23); BASOPHILS PERCENT AUTO 1 % (0-2); EOSINOPHILS ABSOLUTE AUTO 0.05 K/mm3 (0.00-0.68); EOSINOPHILS PERCENT AUTO 1 % (0-6); IMMATURE GRAN ABSOLUTE AUTO 0.01 K/mm3 (0.00-0.10); IMMATURE GRAN PERCENT AUTO 0 % (0-1); LYMPHOCYTES ABSOLUTE AUTO 0.78 K/mm3 (0.84-5.20); LYMPHOCYTES PERCENT AUTO 11 % (21-46); MONOCYTES ABSOLUTE AUTO 0.79 K/mm3 (0.16-1.47); MONOCYTES PERCENT AUTO 11 % (4-13); Mean Corpuscular HGB 26.4 pg (26.0-34.0); Mean Corpuscular HGB Conc 31.6 g/dL (31.5-36.5); Mean Corpuscular Volume 84 fL (80-100); Mean Platelet Volume 11.7 fL (9.1-12.4); NEUTROPHILS ABSOLUTE AUTO 5.67 K/mm3 (1.96-9.15); NEUTROPHILS PERCENT AUTO 77 % (41-73); Platelet Count 235 K/mm3 (150-400); RDW Coefficient Variation 17.9 % (11.7-14.2); RDW Standard Deviation 53.5 fL (35.1-46.3); Red Blood Cell Count 4.55 M/mm3 (3.80-5.20); White Blood Cell Count 7.35 K/mm3 (4.00-11.30)
[2019-06-10 03:36] LABS: International Normalized Ratio 2.22; Prothrombin Time Results 21.9 Sec (9.7-11.5)
[2019-06-10 03:40] LABS: Albumin, Blood 2.6 g/dL (3.4-5.0); Albumin/Globulin Ratio 0.7 (0.8-1.8); Bilirubin, Total 1.4 mg/dL (0.1-1.0); Bun/Creatinine Ratio 42.6 (12.0-20.0); Creatinine, Blood 1.15 mg/dL (0.40-1.00); Globulin, Blood 3.8 g/dL (2.2-4.0); Magnesium, Blood 2.1 mg/dL (1.6-2.4); Potassium, Blood 3.5 mmol/L (3.5-5.5); Total Protein, Blood 6.4 g/dL (6.4-8.2)
--- NOTE | 2019-06-10 04:34 | NUR ---
SHIFT SUMMARY: ASSUMED CARE OF PATIENT AT APPROX 0300, PATIENT SLEEPING WELL, VSS, CALL LIGHT WITHIN REACH, BED LOW AND LOCKED.
--- NOTE | 2019-06-10 10:26 | NUR ---
ASSUMED CARE APPROXIMATELY 0700; PT ALERT SITTING ON BED W/ BREAKFAST TRAY; PT ON RA; O2 SATS >93; PT DENIES CHEST PAIN; DENIES GENERALIZED PAIN; PT CALM AND COMPLIANT W/ CARE; CARDIZEM GTT RESTARTED @ 5 W/ HR IN 100-118; PT DENIES NEEDS AT THIS TIME; CALL LIGHT IN REACH; BED IN LOWEST POSITION;
--- NOTE | 2019-06-10 15:39 | NUR ---
Spiritual care visit/advance directive education conducted. Patient is lying in bed and asleep. Daughter, Makayla is bedside. We go over the advance directive and the concerns she has. I learn that granddaughter Vilma has dual power of dispute resolution specialist and that Vilma and Makayla have had questions about the advance directive. I discuss the topics covered, the process in filling it out and the ways to file it. Makayla tells me this is helpful. I then spend quite some time with Makayla learning of the family unit complications, of Makayla's spiritual journey and of addiction issues in patient's and Makayla sister's life. I listen empathically, encourage self-care, reinforce helpful attitudes and pracitces and provide pastoral director of group counseling program and prayer. Makayla responds well and shows signs of a strengthened juanito and voices appreciation for the visit. I will continue to remain available to patient and family.
--- NOTE | 2019-06-10 17:00 | NUR ---
UPDATE PT CALM AND RESTING IN BED; DAUGHTER AT BEDSIDE; PT HAS SOME URINARY INCONTINENCE; CARDIZEM GTT STOPPED @1435; HR VARIABLE, ELEVATES W/ EXERTION; CALL LIGHT IN REACH; BED IN LOWEST POSITION; WILL CONTINUE TO MONITOR UNTIL HAND OFF TO CHYNA RN
[2019-06-11 04:18] LABS: BASOPHILS ABSOLUTE AUTO 0.02 K/mm3 (0.00-0.23); BASOPHILS PERCENT AUTO 0 % (0-2); EOSINOPHILS ABSOLUTE AUTO 0.09 K/mm3 (0.00-0.68); EOSINOPHILS PERCENT AUTO 1 % (0-6); Hematocrit 37.5 % (33.0-51.0); Hemoglobin 11.8 g/dL (11.5-16.0); IMMATURE GRAN ABSOLUTE AUTO 0.02 K/mm3 (0.00-0.10); IMMATURE GRAN PERCENT AUTO 0 % (0-1); LYMPHOCYTES ABSOLUTE AUTO 0.75 K/mm3 (0.84-5.20); LYMPHOCYTES PERCENT AUTO 11 % (21-46); MONOCYTES ABSOLUTE AUTO 0.78 K/mm3 (0.16-1.47); MONOCYTES PERCENT AUTO 12 % (4-13); Mean Corpuscular HGB 25.9 pg (26.0-34.0); Mean Corpuscular HGB Conc 31.5 g/dL (31.5-36.5); Mean Corpuscular Volume 82 fL (80-100); Mean Platelet Volume 11.5 fL (9.1-12.4); NEUTROPHILS ABSOLUTE AUTO 4.92 K/mm3 (1.96-9.15); NEUTROPHILS PERCENT AUTO 75 % (41-73); Platelet Count 244 K/mm3 (150-400); RDW Coefficient Variation 17.6 % (11.7-14.2); RDW Standard Deviation 51.8 fL (35.1-46.3); Red Blood Cell Count 4.55 M/mm3 (3.80-5.20); White Blood Cell Count 6.58 K/mm3 (4.00-11.30)
[2019-06-11 04:29] LABS: International Normalized Ratio 1.85; Prothrombin Time Results 18.5 Sec (9.7-11.5)
[2019-06-11 04:42] LABS: Bun/Creatinine Ratio 41.8 (12.0-20.0); Creatinine, Blood 1.1 mg/dL (0.40-1.00); Potassium, Blood 3.5 mmol/L (3.5-5.5)
--- NOTE | 2019-06-11 05:38 | NUR ---
SHIFT SUMMARY: PATIENT HR MAINTAINING IN 120S EVEN AFTER EXTRA METOPTOLOL GIVEN. MD NOTIFIED, ORDERS RECIEVED, PATIENT ON CARDIZEM DRIP AT THIS TIME. PATIENT VSS, CALL LIGHT WITHIN REACH. BED LOW AND LOCKED.
--- NOTE | 2019-06-11 08:00 | NUR ---
pt laying in bed awake a/ox3, pleasant and cooperative with care, follows commands well, denies pain, or sob, report a bit of nausia, but feels that it will pass and this happens at home sometimes, offered her something for it, but did not want it at this time, lungs are clear a bit dim in bases, resp even and unlabored, no cough noted, she reports she brings up some phlem at times, is currently on r/a, hrirr, tele in place running afib rate rather labile, from 70's to 100's, is currently on cardizem gtt at 5mls/hr, will continue to monitor, see strip, no edema noted, ppp+1, cap refill <3sec, vs stable, afebrile, iv site is clear and patent, btx4, abd flat soft, nontender, voids without diff, skin c/w/d, shoaib hood, call light in reach.
--- NOTE | 2019-06-11 13:30 | NUR ---
PT RESTING IN BED, DAUGHTER IN TO VISIT, ANSWERED HER QUESTIONS, VS STABLE. CALL LIGHT IN REACH.
--- NOTE | 2019-06-11 16:58 | NUR ---
ASSISTED PT TO SIT ON SIDE OF BED SO SHE CAN TAKE HER LOPRESSOR, SHE HAS A BONY PROMINANCE TO HER COCCYX, PLACED A PREVENTATIVE DRESSING. EDUCATED HER ON NEED TO TURN, AND MOVE, AND NEED FOR DRESSING. NO OPEN AREAS NOTED, CALL LIGHT IN REACH, VS STABLE.
--- NOTE | 2019-06-11 17:55 | NUR ---
PT SITTING UP ON THE SIDE OF THE BED FOR MEALS, DOING OK. NO COMPLAINTS OR NEEDS AT THIS TIME, NO ACUTE CHANGES THIS SHIFT. CALL LIGHT IN REACH.
--- NOTE | 2019-06-12 03:18 | NUR ---
SHIFT SUMMARY: PATIENT HR SLOWLY TRENDING UP THROUGHOUT THE SHIFT AGAIN. PATIENT ASYMPTOMATIC AND SLEEPING WELL, ALL OTHER VSS, CALL LIGHT WITHIN REACH AND USED APPROPRIATLY. NO OTHER ISSUES NOTED.
[2019-06-12 04:07] LABS: Anion Gap 5 mmol/L (6-16); Blood Urea Nitrogen 47 mg/dL (8-24); CO2, Blood 27 mmol/L (21-32); Calcium, Blood 8.4 mg/dL (8.5-10.1); Chloride, Blood 110 mmol/L (98-108); Creatinine, Blood 0.87 mg/dL (0.40-1.00); Glomerular Filtration Rate >60 (60-); Glucose, Blood 124 mg/dL (70-99); Magnesium, Blood 2.2 mg/dL (1.6-2.4); Potassium, Blood 4.6 mmol/L (3.5-5.5); Sodium, Blood 142 mmol/L (136-145)
--- NOTE | 2019-06-12 07:40 | NUR ---
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
--- NOTE | 2019-06-12 08:35 | NUR ---
PO TYLENOL GIVEN FOR PAIN R NECK PT HAD DIFFICULTY SWALLOWING APPLE SAUCE GIVEN STATED THAT IT HELPED PHYSICAL THERAPY CALLED TO COME AND WORK WITH PT
--- NOTE | 2019-06-12 10:17 | NUR ---
PT SITTING UP IN CHAIR DR FAROOQ BY TO SEE PT EARLIER TODAY
--- NOTE | 2019-06-12 10:37 | NUR ---
pt back into bed
[2019-06-12 11:10] LABS: International Normalized Ratio 1.92; Prothrombin Time Results 19.2 Sec (9.7-11.5)
--- NOTE | 2019-06-12 12:18 | NUR ---
pt stated she feels some mild shortness of breath recheck sats 96-97% elev hob pt tired did state that she fell a few months ago and broke her nose
--- NOTE | 2019-06-12 13:14 | NUR ---
PT SITTING UPM IN CHAIR DECLINED LUNCH WANTS TO KEEP HER ENSURE TO DRINK
--- NOTE | 2019-06-12 14:53 | NUR ---
DR FAROOQ CALLED RE PT BREATHING WHEEZING THIS AFTERNOON PT ON OCC USE INHALER DUONEB ORDERED RT CALLED
--- NOTE | 2019-06-12 15:09 | NUR ---
PALLATIVE CARE AT BEDSIDE
--- NOTE | 2019-06-12 15:41 | NUR ---
Initial Visit: Palliative Care Consult for AD/POLST. Pt is A&O and denies pain at this time. Pt denies dyspnea and anxiety at this time. Pt denies nausea at this time. Pt's daughter Makayla is present during visit. Engaged in therapeutic discussion regarding AD/POLST and advanced care planning. Pt lives at home with her granddaughter Vilma and Makayla helps when she is in town visiting. Pt at baseline is independent with ambulating, dressing, and bathing. Daughter reports Pt has recently been experiencing increased weakness and SOB within 20 to 30 feet of ambulation. Educated on disease process including trajectory. Educated on the importance of continued conversations with Pt's PCP regarding disease process in order to plan accordingly. Discussed POLST/AD and educated on life sustaining measures including risk factors. Pt and daughter report no other concerns at this time. Spoke with bedside nurse Peyton and discussed case. Palliative Care will remain available.
--- NOTE | 2019-06-12 18:19 | NUR ---
pt had better appeatite this herbert also stated her breathing is better back in bed
--- NOTE | 2019-06-13 02:14 | NUR ---
PT HAS NOT SLEPT AT ALL THIS EVENING. PT DENIES ANY PAIN AND REFUSES TO TAKE ANY TYLENOL FOR ANY DISCOMFORT. PT HAS SET OFF BED ALARM MULTIPLE TIMES THIS EVENING. BELIEVING IT IS MORNING AND WANTING TO GET OUT OF BED. BED ALARM REMAINS ON FOR SAFETY.
--- NOTE | 2019-06-13 02:38 | NUR ---
PT SET OFF BED ALARM AGAIN. DID NOT WANT TO GET BACK IN THE BED SAYING "I'M DONE WITH THAT BED". RECLINER SET UP IN ROOM WITH CHAIR ALARM. PT ASSISTED TO CHAIR, TV TURNED ON. PT REPORTS SHE IS MORE COMFORTABLE.
[2019-06-13 04:03] LABS: International Normalized Ratio 2.26; Prothrombin Time Results 22.2 Sec (9.7-11.5)
--- NOTE | 2019-06-13 04:52 | NUR ---
SHIFT SUMMARY PT WITH SOME INTERMITTENT CONFUSION THIS EVENING. FORGETFUL. SETTING OFF BED ALARM FREQUENTLY THROUGHOUT THE NIGHT. PT STEADY ON FEET ONLY REQUIRING A SBA FOR AMBULATION. PT FOUND ONCE THIS EVENING APPROX 40-50 FEET FROM IN ROOM IN THE HALLWAY. TOLERATED WELL. SOME SOB NOTED, BUT MINIMAL. PT REMAINED ON RA THIS EVENING. OTHERWIE NO ACUTE CHANGES. VITAL SIGNS STABLE.
--- NOTE | 2019-06-13 11:12 | NUR ---
SHE LANGLEY BEEN PLEASATLY CONFUSED. SHE LANGLEY ONLY SET HER CHAIR ALARM OFF ONCE SO FAR TODAY. SHE LANGLEY BEEN SHOWRED. METOPROLOL HAS BEEN ADJUSTED UP AND LISINOPRIL ADDED. AFIB ABOUT 110 BTS/MIN. INR 2.26.
--- NOTE | 2019-06-13 15:54 | NUR ---
HER DAUGHTERS ARE HERE AND WORRIED ABOUT HER EDEMA IN HER ANKLES, HER CONFUSION, AND HER HEAVY BREATHING AT TIMES. THEY ADMIT SHE HAS HAD ALL THESE THINGS BEFORE BUT DIDN'T NOTICE THEM YESTERDAY. I DISCUSSED THE MEDICATION CHANGES TODAY TO TRY TO HELP THE EDEMA, THE HEART RATE AND HER SOB. HER CONFUSION ALSO DISTRESSES THEM.
--- NOTE | 2019-06-13 16:36 | NUR ---
SHE HAS HAD CONFUSION ALL DAY. HER DAUGHTER IS VERY DISTRESSED BY IT BECAUSE IT IS NOT HER NORMAL. I DISCUSSED IT WITH . HE ORDERED A BMP JUST IN CASE IT CHANGED SIGNIFICANTLY OVER THE LAST DAY. NO FEVER. MILD SOB INTERMITTENTLY. AFIB IN THE LOW 100'S AND 1 TEENS. SHE HAD NAUSEA WITH A SMALL EMESIS AT LUNCHTIME. APPETITE IS VERY SMALL. SHE REQUESTED AND RECEIVED A PRN NEB THIS AFTERNOON. INR THERAPEUTIC. 3 NURSES EACH ATTEMPTED ONCE TO RESTART HER SL BUT WERE UNSUCCESSFUL. CALL OVER TO ICU FOR HELP. NONE YET. HER BED ALARM IS ON. 2 DAUGHTERS AT BEDSIDE.
[2019-06-13 17:31] LABS: Bun/Creatinine Ratio 53.2 (12.0-20.0); Calcium, Blood 8.7 mg/dL (8.5-10.1); Creatinine, Blood 1.11 mg/dL (0.40-1.00); Potassium, Blood 5.4 mmol/L (3.5-5.5)
[2019-06-14 04:22] LABS: Bun/Creatinine Ratio 52.5 (12.0-20.0); Creatinine, Blood 1.2 mg/dL (0.40-1.00); Potassium, Blood 5.5 mmol/L (3.5-5.5)
[2019-06-14 04:29] LABS: International Normalized Ratio 3.63; Prothrombin Time Results 34.2 Sec (9.7-11.5)
--- NOTE | 2019-06-14 05:35 | NUR ---
SHIFT SUMMARY: PT CONFUSED T/O SHIFT. ALERT TO SELF AND FAMILY. ATTEMPTING TO GET OUT OF BED SEVERAL TIMES. BED ALARM ON. HR IN LOW 100'S. A/FIB ON TELE. PT DENIES CP. APPEARS SOMEWHAT SOB WITH AMBULATION. O2 SATS STABLE ON RA. LUNGS SOUNDS CLEAR THROUGHOUT. OUT OF BED TO BATHROOM WITH SBA. VOIDING SMALL AMOUNTS EACH TIME. BLE WITH 1+ PITTING EDEMA. DAUGHTER AT BEDSIDE.
--- NOTE | 2019-06-14 17:37 | NUR ---
SHIFT SUMMARY PT PLEASANTLY CONFUSED. VS STABLE. HR AFIB 100-110'S. BP STABLE. O2 SATS REMAIN ABOVE 90% ON RA. PT COMPLAINED OF STIFFNESS IN HER NECK THAT WAS RELIEVED WITH MEDICATION ADMINISTRATION. PT ABLE TO AMBULATE TO BATHROOM NEEDED WITH SBA. WILL CONTINUE TO MONITOR AND REPORT TO ONCOMING RN. CALL LIGHT IN REACH. CHAIR ALARM ON FOR SAFETY.
[2019-06-15 04:00] LABS: International Normalized Ratio 3.13; Prothrombin Time Results 29.9 Sec (9.7-11.5)
[2019-06-15 04:02] LABS: Bun/Creatinine Ratio 52.8 (12.0-20.0); Calcium, Blood 8.8 mg/dL (8.5-10.1); Creatinine, Blood 1.25 mg/dL (0.40-1.00); Potassium, Blood 5.6 mmol/L (3.5-5.5)
--- NOTE | 2019-06-15 04:54 | NUR ---
SHIFT SUMMARY: PATIENT EXPERIENCING X1 EPISODE OF NAUSEA, MEDICATED PER EMAR. PATIENT VSS, HR REMAINING AROUND 100 TO 110, NO OTHER ISSUES NOTED. CALL LIGHT WITHIN REACH, BED LOW AND LOCKED WITH EXIT ALARM ON.
--- NOTE | 2019-06-15 07:46 | NUR ---
The pt is alert, oriented to person, place, with some difficulty recalling the date and location. She follows directions easily, pleasant and appropriate in conversation, and ambulatory to the bathroom without evidence of dyspnea. Denies pain/discomfort this morning. Atrial fibrillation rate by telemetry 106 bpm.
[2019-06-15] MEDS ORDERED: METO100ER PO (09:19)
--- NOTE | 2019-06-15 09:59 | NUR ---
Call to the pt's family, daughter Ellen, to notify her of discharge orders this morning.
--- NOTE | 2019-06-15 11:37 | NUR ---
The pt is sitting up in the recliner chair, eyes closed, respirations even and unlabored. She appears non anxious, comfortable at this time.
== END 2019-06-15 12:23 | disposition home or self-care (01) | DRG 308 ==
LOC: ER 09:59 → PCU 13:20
PROVIDERS: Emergency Medicine; Internal Medicine; Pharmacist; ADMIT Internal Medicine
DX: I48.20 Chronic atrial fibrillation, unspecified (principal); I50.23 Acute on chronic systolic (congestive) heart failure; N17.9 Acute kidney failure, unspecified; I11.0 Hypertensive heart disease with heart failure; I08.3 Combined rheumatic disorders of mitral, aortic and tricuspid valves; I27.20 Pulmonary hypertension, unspecified; K21.9 Gastro-esophageal reflux disease without esophagitis; Z79.01 Long term (current) use of anticoagulants
CPT/HCPCS: 36415; 71045; 80048; 80053; 80162; 83735; 83880; 84132; 84443; 84484; 85025; 85610; 93005; 93010; 94640; 94760; 96365; 96376; 97110; 97116; 97162; 97530; 99285-25; A9270; J1940; J2405; J7030; J7050

== ENCOUNTER 2019-07-01 14:57 | Observation (INO) | payer MEDICARE, SELFPAY ==
[~2019-07-01] VITALS: Ht 157.5 cm; Wt 43.0 kg
[~2019-07-01 14:57] MED LIST changes: +METO100ER PO
[2019-07-01 15:59] LABS: BASOPHILS ABSOLUTE AUTO 0.01 K/mm3 (0.00-0.23); BASOPHILS PERCENT AUTO 0 % (0-2); EOSINOPHILS ABSOLUTE AUTO 0.01 K/mm3 (0.00-0.68); EOSINOPHILS PERCENT AUTO 0 % (0-6); Hematocrit 53.2 % (33.0-51.0); Hemoglobin 16.2 g/dL (11.5-16.0); IMMATURE GRAN ABSOLUTE AUTO 0.03 K/mm3 (0.00-0.10); IMMATURE GRAN PERCENT AUTO 1 % (0-1); LYMPHOCYTES ABSOLUTE AUTO 0.64 K/mm3 (0.84-5.20); LYMPHOCYTES PERCENT AUTO 10 % (21-46); MONOCYTES ABSOLUTE AUTO 0.29 K/mm3 (0.16-1.47); MONOCYTES PERCENT AUTO 5 % (4-13); Mean Corpuscular HGB 25.8 pg (26.0-34.0); Mean Corpuscular HGB Conc 30.5 g/dL (31.5-36.5); Mean Corpuscular Volume 85 fL (80-100); NEUTROPHILS ABSOLUTE AUTO 5.46 K/mm3 (1.96-9.15); NEUTROPHILS PERCENT AUTO 85 % (41-73); NRBC ABSOLUTE 0.05 K/mm3 (0.00-0.02); NRBC Auto 0.8 /100 WBC (0.0-0.2); Platelet Count 182 K/mm3 (150-400); RDW Coefficient Variation 19.4 % (11.7-14.2); RDW Standard Deviation 56.2 fL (35.1-46.3); Red Blood Cell Count 6.27 M/mm3 (3.80-5.20); White Blood Cell Count 6.44 K/mm3 (4.00-11.30)
[2019-07-01 16:01] LABS: Mean Platelet Volume 12.5 fL (9.1-12.4)
[2019-07-01 16:15] LABS: Albumin, Blood 2.8 g/dL (3.4-5.0); Albumin/Globulin Ratio 0.5 (0.8-1.8); Bun/Creatinine Ratio 44.3 (12.0-20.0); Calcium, Blood 8.7 mg/dL (8.5-10.1); Creatinine, Blood 1.58 mg/dL (0.40-1.00); Globulin, Blood 5.1 g/dL (2.2-4.0); Potassium, Blood 4.6 mmol/L (3.5-5.5); Total Protein, Blood 7.9 g/dL (6.4-8.2)
[2019-07-01 17:27] LABS: Source, Urine Catheter
[2019-07-01 17:31] LABS: PCO2 Arterial 32.2 mmHg (35-45); PO2 Arterial 76.8 mmHg (80-100); pH Blood Arterial 7.43 (7.35-7.45)
[2019-07-01 17:32] LABS: Bilirubin, Urine Neg (Neg); Blood, Urine Neg (Neg); Glucose Qualitative, Urine Neg (Neg); Ketones, Urine Neg (Neg); Leukocyte Esterase, Urine Neg (Neg); Nitrite, Urine Neg (Neg); Protein, Urine 2+ (Neg); Urobilinogen, Urine NORM (Normal)
[2019-07-01] MEDS ORDERED: VITAMIN D3400 UNI1 PO (17:38)
[2019-07-01 17:42] LABS: Appearance, Urine Hazy (Clear); Color, Urine Yellow (P-Yellow)
[2019-07-01 17:43] LABS: Granular Casts 0-2 /lpf (0)
[2019-07-01 17:44] LABS: Bacteria Few /hpf; Red Blood Cells, Urine 0-2 /hpf (0-2); Squamous Epithelial Cells Not Seen /hpf (Few); White Blood Cells, Urine 0-2 /hpf (0-5)
[2019-07-01] MEDS ORDERED: POTASSIUM CHLO20 ME1 PO (18:03)
[2019-07-01] MEDS ORDERED: WARF1 (20:49)
[2019-07-01 21:26] LABS: Prothrombin Time Results 39.8 Sec (9.7-11.5)
[2019-07-01 21:28] LABS: International Normalized Ratio 4.29
[2019-07-02 05:03] LABS: BASOPHILS ABSOLUTE AUTO 0.01 K/mm3 (0.00-0.23); BASOPHILS PERCENT AUTO 0 % (0-2); EOSINOPHILS ABSOLUTE AUTO 0.03 K/mm3 (0.00-0.68); EOSINOPHILS PERCENT AUTO 1 % (0-6); Hematocrit 50.7 % (33.0-51.0); Hemoglobin 15.4 g/dL (11.5-16.0); IMMATURE GRAN ABSOLUTE AUTO 0.01 K/mm3 (0.00-0.10); IMMATURE GRAN PERCENT AUTO 0 % (0-1); LYMPHOCYTES ABSOLUTE AUTO 0.81 K/mm3 (0.84-5.20); LYMPHOCYTES PERCENT AUTO 14 % (21-46); MONOCYTES ABSOLUTE AUTO 0.45 K/mm3 (0.16-1.47); MONOCYTES PERCENT AUTO 8 % (4-13); Mean Corpuscular HGB 25.6 pg (26.0-34.0); Mean Corpuscular HGB Conc 30.4 g/dL (31.5-36.5); Mean Corpuscular Volume 84 fL (80-100); NEUTROPHILS PERCENT AUTO 77 % (41-73); NRBC ABSOLUTE 0.07 K/mm3 (0.00-0.02); NRBC Auto 1.2 /100 WBC (0.0-0.2); Platelet Count 163 K/mm3 (150-400); RDW Coefficient Variation 19.5 % (11.7-14.2); RDW Standard Deviation 55.3 fL (35.1-46.3); Red Blood Cell Count 6.01 M/mm3 (3.80-5.20); White Blood Cell Count 5.71 K/mm3 (4.00-11.30)
--- NOTE | 2019-07-02 05:04 | NUR ---
SHIFT SUMMARY- PT. NEW ADMIT FROM ED. TRANSFERRED ONTO BED BY NURSING STAFF. A&O, PLEASANT WITH DX'S OF DEHYDRATION AND FTT. PT. HAS GENERALIZED WEAKNESS, IS 1 ASSIST TO BSC, AND RECEIVING IV FLUIDS. PT. ON TELE RUNNING AT [facility]. DENIED ANY PAIN OR DISCOMFORT T/O THE NIGHT, BUT HAS DRY COUGH. CRITICAL INR IS 4.29, PHYSICIAN NOTIFED. ORDERS RECEIVED TO HOLD COUMADIN FOR THE NIGHT. PT. RESTING COMFORTABLY, NO APPARENT DISTRESS NOTED. CALL LIGHT WITHIN REACH AND SIDE RAILS UP X2. WILL CONT TO MONITOR.
[2019-07-02 05:12] LABS: Mean Platelet Volume 11.9 fL (9.1-12.4)
[2019-07-02 05:28] LABS: Albumin, Blood 2.4 g/dL (3.4-5.0); Albumin/Globulin Ratio 0.5 (0.8-1.8); Bilirubin, Total 0.9 mg/dL (0.1-1.0); Bun/Creatinine Ratio 43.5 (12.0-20.0); Calcium, Blood 8.3 mg/dL (8.5-10.1); Creatinine, Blood 1.54 mg/dL (0.40-1.00); Globulin, Blood 4.4 g/dL (2.2-4.0); Potassium, Blood 4.4 mmol/L (3.5-5.5); Total Protein, Blood 6.8 g/dL (6.4-8.2)
[2019-07-02 05:34] LABS: International Normalized Ratio 4.67
--- NOTE | 2019-07-02 15:35 | NUR ---
Spiritual care visit conducted. Patient is lying in bed and alert. Daughter is bedside. I provide spiritual guidance and prayer. Patient and daughter thank me for the time and care. I will continue to remain available to patient and family.
--- NOTE | 2019-07-02 15:42 | NUR ---
ALERT. ORIENTED. TELE ON SHOWING [facility]. ONE PERSON ASSIST TO CHAIR . RECEIVED ONE BAG NS VIA IV. PALLIATIVE CARE CALLED AFTER DISCUSSING PLAN OF CARE WITH DAUGHTER. PLAN IS FOR PATIENT TO GO HOME TOMORROW ON HOSPICE. DENIES; NAUSEA, PAIN OR SHORTNESS OF BREATH. SLOW TO RESPOND, BUT APPROPRIATE. VERY POOR APPETITE. HAD CUP OF OJ FOR BREAKFAST AND 1/2 CUP SOUP FOR DINNER WHICH ACCORDING TO DAUGHTER THIS IS BETTER THAN AT HOME. BED AND CHAIR ALARMS USED. FREQUENT ROUNDING. WCTM.
--- NOTE | 2019-07-02 16:00 | NUR ---
Initial Pal Care visit: T/c from RN with request for visit on new Pal Care referral. Pt is 88 year old female, admitted with Failure to thrive, dehydration/malnutrition and exacerbations of multiple comorbidities of CKD stage 3, chf, a-fib and dementia. RN states pt's Enoch is visiting and that this would be a good time to assess. EMR and recent advanced directive reviewed just prior to visit. Introduced myself to pt and Makayla kendall. Pt is smiling and happy to converse. She has hx of dementia but presents very appropriate in light conversation. She is oriented to self, family and situation/hospitalization. Makayla Kendall is her medical POA and Vilma jacobo is her alternate medical POA and home cg. PT lives with Vilma. Enoch requests we step out of the room to further discuss goals of care and family wishes for pt. She called Vilma and we conferenced with her. Pt has been declining over recent years with an acceleratioin of decline in mentation, appetite, strength and nutritional status in the past couple of months. Pt was admitted here 2-3 weeks ago for similar acute s/s, exacerbation of a-fib, CHF acute on chronic CKD with dehydration, poor PO intake of food/fluids. Pt is currently on [facility]. Vilma states she is talking with a family memeber who is in health care and they feel pt is nearing the end of her life. We discussed pt's advanced directive and wishes, family wishes and goals. Based on her advanced directive, they do not want any intervention of her chronic progressive ilnesses at this time other than treatment of her s/s to optimize her comfort. We discussed HH vs Hospice services and care. I outlined goals of hospice and benefits, along with chanages from previous care where they called 911 and brought pt to hospital with acute issues. Family understand and request [facility] on discharge. They are ready for pt to return home as early as tomorrow. No equipment needs identified but Hospice should review with them again as I am not certain the granddaughter fully heard my questions during conference call on speaker phone. We discussed medications for s/s. Pt is not currently reporting or exhibiting experiencing pain, nausea, anxiety or dyspnea. She has had severe nausea with dehydration at home before along with sob, anxiety & discomfort. She does not report pain even when it appears she is having pain, per family. POLST completed with Enoch for use in the home with hospice. There was no change to her code status but enoch and odalis checked comfort measures only and DNR as previously and in agreement with pt's AD. Note left with request for Dr milan. Discussed my visit with RN, NEHA Cannon and Dr ortega. Order for Hospice eval obtained and entered. Will return tomorrow for s/s assessment and to fax signed POLST to medical records. We will need to make sure the original is sent home with pt. Enoch reports they have a new PCP, Dr. Fonseca, who has seen her recently for post hospitalization f/u. They completed a POLST in his office but it was not signed and they do not have posession of it after a number of weeks of waiting. They have their official new pt office visit with new PCP mid month. I asked them to call PCP office to verify if they still wanted to see pt in the office after admission to hospice.
--- NOTE | 2019-07-02 18:15 | NUR ---
Spiritual Care inital note: Mrs. Arce appears frail and weak. She spoke softly and is CHILKAT. She did not appear able to stay awake long enough for in-depth conversation. She is a Gnosticist and ejoyed having me pray for her. Dtr at bedside appers loving and attentive. Encouraged self-care, affirmed obvious love, and offered continued support.
--- NOTE | 2019-07-03 04:51 | NUR ---
SHIFT SUMMARY- PT. ALERT WITH SOME CONFUSION LAST NIGHT. ATTEMPTING TO GET OUT OF BED AND REMOVING TELE MONITOR A FEW TIMES DURING THE NIGHT. PT. REDIRECTED AND BED ALARM TURNED ON FOR SAFETY. PT. UP TO BSC 2X W/1 ASSIST AND WALKER. VERY LITTLE OUTPUT NOTED. PT. HAS POOR APPETITE, ATE HALF OF AN APPLESAUCE WITH MEDS AND SIPS OF WATER T/O THE NIGHT. DENIED ANY PAIN OR DISCOMFORT T/O THE SHIFT. RESTING COMFORTABLY IN BED, NO APPARENT DISTRESS NOTED. CALL LIGHT WITHIN REACH AND SIDE RAILS UP X2. WILL CONT TO MONITOR.
[2019-07-03 05:59] LABS: BASOPHILS ABSOLUTE AUTO 0.01 K/mm3 (0.00-0.23); BASOPHILS PERCENT AUTO 0 % (0-2); EOSINOPHILS ABSOLUTE AUTO 0.01 K/mm3 (0.00-0.68); EOSINOPHILS PERCENT AUTO 0 % (0-6); Hematocrit 52.8 % (33.0-51.0); IMMATURE GRAN ABSOLUTE AUTO 0.01 K/mm3 (0.00-0.10); IMMATURE GRAN PERCENT AUTO 0 % (0-1); LYMPHOCYTES ABSOLUTE AUTO 0.97 K/mm3 (0.84-5.20); LYMPHOCYTES PERCENT AUTO 17 % (21-46); MONOCYTES ABSOLUTE AUTO 0.56 K/mm3 (0.16-1.47); MONOCYTES PERCENT AUTO 10 % (4-13); Mean Corpuscular HGB 25.8 pg (26.0-34.0); Mean Corpuscular HGB Conc 30.3 g/dL (31.5-36.5); Mean Corpuscular Volume 85 fL (80-100); Mean Platelet Volume 12.4 fL (9.1-12.4); NEUTROPHILS ABSOLUTE AUTO 4.31 K/mm3 (1.96-9.15); NEUTROPHILS PERCENT AUTO 73 % (41-73); NRBC ABSOLUTE 0.08 K/mm3 (0.00-0.02); NRBC Auto 1.4 /100 WBC (0.0-0.2); Platelet Count 190 K/mm3 (150-400); RDW Standard Deviation 57.8 fL (35.1-46.3); Red Blood Cell Count 6.19 M/mm3 (3.80-5.20); White Blood Cell Count 5.87 K/mm3 (4.00-11.30)
[2019-07-03 06:19] LABS: Calcium, Blood 8.2 mg/dL (8.5-10.1); Creatinine, Blood 1.65 mg/dL (0.40-1.00); Potassium, Blood 5.8 mmol/L (3.5-5.5)
[2019-07-03 06:48] LABS: Prothrombin Time Results 48.8 Sec (9.7-11.5)
[2019-07-03 06:59] LABS: International Normalized Ratio 5.36
--- NOTE | 2019-07-03 07:03 | NUR ---
LAB CALLED IN CRITICAL RESULT= INR 5.36 WHILE GIVING REPORT TO ONCOMING AM NURSE. YAJAIRA RN PRESENT AT THE TIME OF CALL AND AWARE. AM NURSE TO CALL CRITICAL TO PHYSICIAN FOCUSER THIS AM.
[2019-07-03] MEDS ORDERED: Senna S Tablet1 EACH PO (09:55)
[2019-07-03] MEDS ORDERED: MIRT15 PO (09:56)
[2019-07-03] MEDS ORDERED: MORP20L PO (09:56)
[2019-07-03] MEDS ORDERED: PROC25S PR (09:57)
[2019-07-03] MEDS ORDERED: Transderm-Scop1 EACH TD (09:58)
--- NOTE | 2019-07-03 10:47 | NUR ---
Pal care visit: Pt sound asleep in dark room this am at 0845. Breathing is even and unlabored. I did not note any nonverbal indicators of pain, anxiety, distress while pt sleeping. No family at bedside currently. Spoke with LATASHA, RN and after my visit. signed new POLST, which was copied, faxed to medical records with original placed back on the chart for homegoing with pt on discharge, ordered today. Update given to CM yesterday on plan for return home today with Hospice per [facility]. Pt is already on [facility] currently. Transportation and coordination to be arranged with granddaughter, Vilma and donisMakayla, per CM.
--- NOTE | 2019-07-03 14:54 | NUR ---
PER OK TO D'C TELE PATIENT GOING HOME TOMORROW ON HOSPICE.
--- NOTE | 2019-07-03 15:40 | NUR ---
SLEEPING MOST OF SHIFT. REFUSES MEDS THIS A.M. GIVEN SPONGE BATH. WAS AWARE HAD TO HAVE B.M. AND 2 PERSON ASSIST TO BSC. TELE D'C. ATE ABOUT 3 BITES OF FOOD FOR DAUGHTER AT LUNCHTIME. TO BE D'C TOMORROW BEFORE NOON TO DAUGHTERS HOUSE ON [facility]. DAUGHTER WITH SHORT TERM MEMORY LOSS. MEPILEX TO BUTTOCK. WCTM
--- NOTE | 2019-07-03 21:07 | NUR ---
PATIENT O2 LEVEL 70'S 80'S ON VITAL CHECK. PATIENT PUT ON 4L O2 NC AND BACK TO 98-100%. DNR AND DC TO HOSPICE TOMORROW. WILL CONTINUE TO MONITOR.
--- NOTE | 2019-07-04 00:22 | NUR ---
RT BROUGHT IN EAR O2 PROBE FOR VITALS. PATIENT HAVING LOW PERFUSION RATES WITH FINGER PROBE. STATING 98-100% ON 2L O2 NC. PATIENT RESTING BUT AROUSABLE FOR ATTENDS CHECKS AND TURNING. WILL CONTINUE TO MONITOR.
--- NOTE | 2019-07-04 04:06 | NUR ---
SHIFT SUMMARY PATIENT DESTATED INTO THE 70'S-80'S USING VITAL MACHINE, WITH LOW PERFUSION RATE. PATIENT INITIALLY PUT ON 4 L O2 NC AND STATING 98-100% BUT STILL ISSUE WITH INTERMITTENT LOW PERFUSION INDICATED. ASSET ANALYST REPORTS TO USE EAR PROBE INSTEAD OF FINGER PROBE. RT NOTIFED AND LEFT EAR PROBE IN ROOM. PATIENT NOW STATING 98-100% ON 2L O2 NC USING EAR PROBE. VSS/AFBERILE. DENIES PAIN AND N/V. PIV REMAINS INTACT. TOOK MEDICATION WHOLE WITH APPLE SAUCE. PATIENT SLEPT ON/OFF MOST OF THE SHIFT. WILL WEAN OFF O2. CALL LIGHT IN REACH. BED IN LOWEST POSITION. WILL CONTINUE TO MONITOR UNTIL DAY SHIFT NURSE ASSUMES CARE.
[2019-07-04 09:41] LABS: International Normalized Ratio 2.98; Prothrombin Time Results 28.6 Sec (9.7-11.5)
--- NOTE | 2019-07-04 10:15 | NUR ---
PATIENT RESTING IN BED . TO DISCHARGE HOME ON HOSPICE. PATIENT REFUSED HER MORNING MEDS. ALERT TO SELF AND PLACE. NO DISTRESS NOTED.
--- NOTE | 2019-07-04 12:13 | NUR ---
1215 PT TO DISCHARGE HOME ON HOSPICE. IV REMOVED, NO SS OF INFECTION NOTED. HOSPICE NURSE WAS PRESENT ALONG WITH FAMILY DURING DISCHARGE. HARD COPY GIVEN TO NURSE PER STEPHANIE TO PICKUP MEDS. PATIENT TAKEN HOME BY [facility]. PT NICOLE LUNCH PRIOR TO DISCHARGE
== END 2019-07-04 12:27 | disposition hospice, home (50) ==
LOC: ER 14:57 → MEDS 15:48 → ENPENDDIS 07-03 11:15 → MEDS 07-04 12:27
PROVIDERS: Emergency Medicine; Internal Medicine; Pharmacist; Physician Assistant; ADMIT Internal Medicine
DX: E86.0 Dehydration (principal); I13.0 Hypertensive heart and chronic kidney disease with heart failure and stage 1 through stage 4 chronic kidney disease, or unspecified chronic kidney disease; N18.3 Chronic kidney disease, stage 3 (moderate); I50.42 Chronic combined systolic (congestive) and diastolic (congestive) heart failure; R54 Age-related physical debility; I48.20 Chronic atrial fibrillation, unspecified; E44.0 Moderate protein-calorie malnutrition; T45.515A Adverse effect of anticoagulants, initial encounter; K21.9 Gastro-esophageal reflux disease without esophagitis; Z66 Do not resuscitate; Z88.8 Allergy status to other drugs, medicaments and biological substances; Z79.899 Other long term (current) drug therapy
CPT/HCPCS: 36415; 36600; 71046; 80048; 80053; 81001; 82803; 83880; 84484; 85025; 85610; 93005; 93010; 96360; 96361; 96374; 96375; 97162; 97530; 99285-25; A9270; G0378; J7030; P9612